=== PATIENT | male | born 2000 | race Hispanic/Latino ===

== ENCOUNTER 2019-12-19 13:58 | Emergency (ER) | payer OTHER ==
[~2019-12-19] VITALS: Ht 167.6 cm; Wt 85.3 kg
--- NOTE | 2019-12-19 14:53 | REP ---
CT BRAIN WITHOUT CONTRAST: 12/19/2019. Clinical history: Facial numbness. Technique: No prior study. Standard soft tissue and bone windows reviewed for each slice level with coronal soft tissue reconstructions reviewed. Findings: Lateral ventricles are midline, symmetric and without dilatation or displacement. Basal ganglia appeared symmetric and normal. Third and fourth ventricles were unremarkable. The trujillo-white junction differentiation is well maintained. Cortical stripe preserved. There is no cortical atrophy. No intra or extra-axial hemorrhage, mass, mass effect or edema. The brainstem and cerebellum are unremarkable. Mastoids sinuses, skull base and calvarium show no fracture or focal lesion. Impression: 1. Normal noncontrast CT brain. No intracranial hemorrhage, edema, infarct, mass or abnormal fluid collection. 2. Skull base, calvarium, sinuses and mastoids all clear. Electronically Signed by Tomas Grullon MD 12/19/2019 08:02 P
[2019-12-19] MEDS ORDERED: PRED10TA2 PO (15:12)
[2019-12-19] MEDS ORDERED: VALT500T PO (15:12)
[2019-12-19] MEDS ORDERED: EYEOIN OP (15:15)
[2019-12-19] MEDS ORDERED: REFR0.5D8 OS (15:15)
[2019-12-19 15:22] VITALS: BP 129/68
[2019-12-19 15:24] LABS: BASO % 0.2 % (0.0-1.0); EOS # 0.1 10^3/uL (0.0-0.5); EOS % 1.1 % (0.0-3.0); HEMATOCRIT 45.5 % (42.0-52.0); LYMPH # 1.8 10^3/uL (1.5-5.0); LYMPH % 21.7 % (24.0-44.0); MEAN CORPUSCULAR HEMOGLOBIN 30.4 pg (27.0-33.0); MEAN CORPUSCULAR VOLUME 92.3 fl (80.0-96.0); MONO # 0.7 10^3/uL (0.0-0.8); NEUTROPHILS # 5.7 10^3/uL (1.5-8.5); NEUTROPHILS % 68.6 % (36.0-66.0); PLATELET COUNT, AUTOMATED 273 10^3/uL (150-450); RED BLOOD COUNT 4.93 10^6/uL (4.30-6.10); WHITE BLOOD COUNT 8.4 10^3/uL (4.0-10.0)
[2019-12-19 15:49] LABS: ALBUMIN 4.3 GM/DL (3.2-5.2); ALT/SGPT 43 U/L (12-78); BILIRUBIN,DIRECT < 0.1 MG/DL (0.0-0.2); BILIRUBIN,TOTAL 0.5 MG/DL (0.2-1.0); BLOOD UREA NITROGEN 14 MG/DL (7-18); CALCIUM LEVEL 8.9 MG/DL (8.5-10.1); CARBON DIOXIDE LEVEL 31 MEQ/L (21-32); CHLORIDE LEVEL 105 MEQ/L (98-107); CREATININE FOR GFR 0.94 MG/DL (0.70-1.30); GLOMERULAR FILTRATION RATE > 60.0 (>60); GLUCOSE, FASTING 100 MG/DL (70-100); POTASSIUM SERUM 4.2 MEQ/L (3.5-5.1); SODIUM LEVEL 138 MEQ/L (136-145); TOTAL PROTEIN 7.7 GM/DL (6.4-8.2)
== END 2019-12-19 15:50 | disposition home or self-care (01) ==
LOC: M ED 13:58
DX: B02.21 Postherpetic geniculate ganglionitis (principal)

== ENCOUNTER 2019-12-22 04:48 | Emergency (ER) | payer OTHER ==
[~2019-12-22] VITALS: Ht 167.6 cm; Wt 85.0 kg
[~2019-12-22 04:48] MED LIST: EYEOIN OP; PRED10TA2 PO; REFR0.5D8 OS; VALT500T PO
[2019-12-22] MEDS ORDERED: METOCLOPRAMIDE INJ 10MG/2ML VIAL (J2765) IV ONE (05:30)
[2019-12-22] MEDS ORDERED: NS 1,000 ML IV ONE (05:30)
[2019-12-22 05:52] LABS: BASO % 0.3 % (0.0-1.0); EOS % 0.2 % (0.0-3.0); HEMATOCRIT 48.9 % (42.0-52.0); HEMOGLOBIN 15.9 g/dl (13.5-17.5); LYMPH # 1.1 10^3/uL (1.5-5.0); LYMPH % 7.2 % (24.0-44.0); MEAN CORPUSCULAR HEMOGLOBIN 29.9 pg (27.0-33.0); MEAN CORPUSCULAR HGB CONC 32.5 g/dl (32.0-36.5); MEAN CORPUSCULAR VOLUME 91.9 fl (80.0-96.0); MONO % 6.8 % (0.0-5.0); NEUTROPHILS # 12.6 10^3/uL (1.5-8.5); PLATELET COUNT, AUTOMATED 309 10^3/uL (150-450); RED BLOOD COUNT 5.32 10^6/uL (4.30-6.10); WHITE BLOOD COUNT 14.8 10^3/uL (4.0-10.0)
[2019-12-22 06:14] LABS: ALBUMIN 4.4 GM/DL (3.2-5.2); ALT/SGPT 41 U/L (12-78); BILIRUBIN,DIRECT 0.1 MG/DL (0.0-0.2); BILIRUBIN,TOTAL 0.5 MG/DL (0.2-1.0); BLOOD UREA NITROGEN 21 MG/DL (7-18); CALCIUM LEVEL 9.3 MG/DL (8.5-10.1); CARBON DIOXIDE LEVEL 25 MEQ/L (21-32); CHLORIDE LEVEL 107 MEQ/L (98-107); CREATININE FOR GFR 1.12 MG/DL (0.70-1.30); GLOMERULAR FILTRATION RATE > 60.0 (>60); GLUCOSE, FASTING 129 MG/DL (70-100); LIPASE 85 U/L (73-393); POTASSIUM SERUM 4.1 MEQ/L (3.5-5.1); SODIUM LEVEL 140 MEQ/L (136-145); TOTAL PROTEIN 7.8 GM/DL (6.4-8.2)
[2019-12-22] MEDS ORDERED: REGL10TA6 PO (06:37)
[2019-12-22 06:47] VITALS: BP 136/82
== END 2019-12-22 06:48 | disposition home or self-care (01) ==
LOC: M ED 04:48
DX: K52.9 Noninfective gastroenteritis and colitis, unspecified (principal); B02.9 Zoster without complications
CPT/HCPCS: 80048; 80076; 83690; 85025; 96361; 96374; 99284; J2765